=== PATIENT | female | born 1975 | race Two or more races ===

== ENCOUNTER 2023-02-06 22:19 | Emergency (ER) | payer BC, OTHER ==
[~2023-02-06] VITALS: Ht 160 cm; Wt 72.9 kg
[2023-02-06 23:34] LABS: Urine Bacteria NONE SEEN /hpf (None Seen); Urine Blood Negative /uL (Negative); Urine Mucus FEW (None Seen); Urine WBC 1 /hpf (0 - 5)
[2023-02-07] MEDS ORDERED: ALBUTEROL SULF 2.5 MG/0.5ML(0.5%) NEB SOLN NEB ONE (01:00)
[2023-02-07] MEDS ORDERED: IPRATROPIUM BROM 0.5 MG/2.5ML INH SOL NEB ONE (01:00)
[2023-02-07] MEDS ORDERED: ALBUAER3 IN (01:14)
[2023-02-07] MEDS ORDERED: PRED20TA2 PO (01:14)
[2023-02-07] MEDS ORDERED: DexAMETHasone SOD PHOS 10MG/1ML VIAL INJ IM ONE (01:15)
[2023-02-07 01:19] VITALS: BP 100/72
== END 2023-02-07 01:45 | disposition home or self-care (01) ==
LOC: ER 22:19
DX: J44.1 Chronic obstructive pulmonary disease with (acute) exacerbation (principal); J06.9 Acute upper respiratory infection, unspecified; Z20.822 Contact with and (suspected) exposure to COVID-19
CPT/HCPCS: 36415; 71046; 81001; 87426; 87804; 94640; 96372; 99284; J1100; J7644

== ENCOUNTER 2025-08-10 15:55 | Emergency (ER) | payer BC ==
[~2025-08-10] VITALS: Ht 160 cm; Wt 78.0 kg
[~2025-08-10 15:55] MED LIST: ALBUAER3 IN; PRED20TA2 PO
--- NOTE | 2025-08-10 16:34 | ED.PDOC ---
Musculoskeletal HPI Comments A 50 YEAR OLD FEMALE PRESENTS TO THE ED WITH COMPLAINT OF RIGHT POSTERIOR KNEE BUMP. PATIENT STATES SHE HAS BEEN EXPERIENCING RIGHT POSTERIOR KNEE PAIN WITH A LUMP FOR THE PAST 3 DAYS. PT IS ABLE TO WALK AND STAND WITH NORMAL GAIT. PATIENT DENIES FEVER, CHILLS, SHORTNESS OF BREATH, CHEST PAIN, ABDOMINAL PAIN, NAUSEA, VOMITING, HEADACHE, OR OTHER COMPLAINTS. NO OTHER SYMPTOMS OR MODIFYING FACTORS AT THIS TIME. PATIENT IS ALERT, ORIENTED X 4, AND HAS STEADY GAIT. Chief Complaint: Lower Extremity Time Seen by MD: 16:25 Reviewed Notes: Nurses Notes, Medications, Allergies Allergies: Coded Allergies: NO KNOWN ALLERGIES (Unverified , 08/10/25) Home Meds Active Scripts Acetaminophen (Tylenol Extra Strength Fo) 500 Mg Tab, 1000 MG PO BID, #30 TAB Prov:JOSH WILDER 08/10/25 Prednisone (Prednisone) 20 Mg Tab, 20 MG PO BID for 5 Days, #10 TAB 0 Refills Prov:MAK SCHNEIDER 02/07/23 Albuterol Sulfate (VENTOLIN MDI) 90 Mcg Ih, 90 MCG IN PRN, #1 INH 0 Refills Prov:MAK SCHNEIDER 02/07/23 Information Source: Patient Mode of Arrival: Ambulatory Location: Right Extremity Location: Knee Timing: Days Prehospital treatment: None Severity: Moderate Able to Move Extremity: Yes Bear Weight: Fully Pain: Moderate Mechanism: No Trauma, Spontaneous Circumstances: Spontaneous Onset of Symptoms: Spontaneous Symptoms: Pain DVT Risk Factors: NONE Last Tetanus: Unknown Associated signs and symptoms: Knee pain Past Medical History PAST MEDICAL HISTORY: Denies Surgical History: Denies all surgeries 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 History Family History Family History: Reviewed,noncontributory to illness Social History Smoker: Non-Smoker Alcohol: Denies ETOH Use Drugs: Denies Drug Use Lives In: Home Constitutional: denies: chills, diaphoresis, fatigue, fever, malaise, sweats, weakness, others EENTM: denies: blurred vision, double vision, ear bleeding, ear discharge, ear drainage, ear pain, ear ringing, eye pain, eye redness, hearing loss, mouth pain, mouth swelling, nasal discharge, nose bleeding, nose congestion, nose pain, photophobia, tearing, throat pain, throat swelling, voice changes, others Respiratory: denies: cough, hemoptysis, orthopnea, SOB at rest, shortness of breath, SOB with excertion, stridor, wheezing, others Cardiovascular: denies: chest pain, dizzy spells, diaphoresis, Dyspnea on exertion, edema, irregular heart beat, left arm pain, lightheadedness, palpitations, PND, syncope, others Gastrointestinal: denies: abdomen distended, abdominal pain, blood streaked bowels, constipated, diarrhea, dysphagia, difficulty swallowing, hematemesis, melena, nausea, poor appetite, poor fluid intake, rectal bleeding, rectal pain, vomiting, others Genitourinary: denies: abnormal vagina bleeding, burning, dyspareunia, dysuria, flank pain, frequency, hematuria, incontinence, pain, , vagina discharge, urgency, others Neurological: denies: dizziness, fainting, headache, left sided numbness, left sided weakness, numbness, paresthesia, pre-existing deficit, right sided numbness, right sided weakness, seizure, speech problems, tingling, tremors, weakness, others Musculoskeletal: reports: muscle pain, others (RIGHT KNEE PAIN); denies: back pain, gout, joint pain, joint swelling, muscle stiffness, neck pain Integumetry: reports: lumps (RIGHT POSTERIOR KNEE ); denies: bruises, change in color, change in hair/nails, dryness, laceration, lesions, rash, wounds, others Allergic/Immunocompromised: denies: Difficulty Healing, Frequent Infections, Hives, Itching, others Hematologic/Lymphatic: denies: anemia, blood clots, easy bleeding, easy bruising, swollen glands, others Endocrine: denies: excessive hunger, excessive sweating, excessive thirst, excessive urination, flushing, intolerance to cold, intolerance to heat, unexplained weight gain, unexplained weight loss, others Psychiatric: denies: anxiety, bipolar disorder, depression, hopeless, panic disorder, schizophrenia, sleepless, suicidal, others All Other Systems: Reviewed and Negative Physical Exam General Appearance: No Apparent Distress, Normal HEENT: Normal ENT Inspection, PERRL/EOMI, Pharynx Normal, TMs Normal Neck: Full Range of Motion, Non-Tender, Normal, Normal Inspection Respiratory: Chest Non-Tender, Lungs Clear, No Accessory Muscle Use, No Respiratory Distress, Normal Breath Sounds Cardiovascular: No Edema, No JVD, No Murmur, No Gallop, Normal Peripheral Pulses, Regular Rate/Rhythm Breast Exam: Deferred Gastrointestinal: No Organomegaly, Non Tender, No Pulsatile Mass, Normal Bowel Sounds, Soft Genitalia: Deferred Pelvic: Deferred Rectal: Deferred Extremities: No calf tenderness, Normal capillary refill, Normal inspection, Normal range of motion, No pedal edema, Tender (WITH A LUMP ON RIGHT POSTERIOR PROXIMAL THIGH, NO REDNESS, SWELLING AND DVT SIGNS, DAMON'S CYST OR LIPOMA. ) Musculoskeletal : Apperance: Normal Neurologic: Alert, nurse receptionist II-XII nml as Tested, No Motor Deficits, Normal Affect, Normal Mood, No Sensory Deficits Cerebellar Function: Normal Reflexes: Normal Skin: Dry, Normal Color, Warm, Other (2DOP2MO LUMP ON RIGHT POSTERIOR PROXIMAL THIGH, NO REDNESS, SWELLING AND HARDNESS, +LIPOMA OR DAMON'S CYST. ) Peripheral Pulses: 2+ carotid (R), 2+ carotid (L), 2+ dorsalis pedis (R), 2+ dorsalis pedis (L) Lymphatic: No Adenopathy Was a procedure done? Was a procedure done?: No Differential Diagnosis EXT Differential Diagnosis: Deep Vein Thrombosis, Sprain, Strain, Arthritis, Other (LIPOMA OR DAMON'S CYST) X-Ray, Labs, Meds, VS Vital Signs Date Time Temp Pulse Resp B/P (MAP) Pulse Ox O2 Delivery O2 Flow Rate FiO2 08/10/25 17:39 97 Room Air* 0 21 08/10/25 17:34 98.0 73 17 106/72 (83) 97 98.0 08/10/25 15:56 97.0 80 18 130/73 97 97.0 PATIENT: RUTH SPARROWT: [id number]: [id number] : 1975 LOC: ER ROOM / BED: / AGE / SEX: 50 / F ADM STATUS: REG ER SERVICE [id number] ORDERING PHYSICIAN: JOSH WILDER PROCEDURE(s): RLEXT - RIGHT LOWER EXTREMITY ULTRASOU REASON: RIGHT POSTERIOR KNEE BUMP ORDER NUMBER(s): [id number], ACCESSION NUMBER(s): [id number] Exam: Ultrasound right lower extremity, limited Clinical history: Lump in the posterior right knee Technique: Multiple grayscale and color doppler images obtained in the right popliteal fossa in the area of clinical concern. Comparison: None. Findings/impression: No Damon's cyst in the right popliteal fossa. No lymphadenopathy or fluid collection. ATED BY: NIKA MARIE MD DICTATED DATE/TIME: 08/10/251710 SIGNED BY: NIAK MARIE MD SIGNED DATE/TIME: 08/10/251710 CC: X-Ray, Labs, Meds, VS Comment EXTERNAL MEDICAL RECORDS REVIEWED: [NONE] INDEPENDENT HISTORIANS: [NONE] SOCIAL DETERMINANTS OF HEALTH: [NONE] LABS ORDERED: NONE REVIEWED AND INTERPRETED RESULTS: NONE IMAGING ORDERED: US RIGHT LOWER EXTREMITY TREATMENTS ORDERED: NONE PROCEDURES PERFORMED: NONE CRITICAL CARE TIME: NONE I HAVE DISCUSSED THE PATIENT WITH THE ATTENDING PHYSICIAN DR. SUNG AND HE AGREES WITH THE PATIENT'S PLAN OF CARE AND DISPOSITION. BASED ON HISTORY OF PRESENT ILLNESS, AND PHYSICAL EXAM, PATIENT WILL BE DISCHARGED HOME. DISCUSSED PLAN FOR DISCHARGE HOME WITH RX [TYLENOL ]. MEDICAT ION WARNINGS GIVEN. SHARED DECISION MAKING: DISCUSSED WITH PATIENT THAT THEIR WORKUP WAS NORMAL. PATIENT INSTRUCTED TO FOLLOW UP WITH PRIMARY CARE PROVIDER IN 1-2 DAYS FOR RE- EVALUATION OF SYMPTOMS. PATIENT VERBALIZES UNDERSTANDING TO RETURN TO ED FOR NEW OR WORSENING SYMPTOMS OR IF FOLLOW UP WITH PCP CANNOT BE OBTAINED. PATIENT FEELS COMFORTABLE GOING HOME AT THIS TIME. ALL QUESTIONS ADDRESSED AT TIME OF DISCHARGE. Images Reviewed?: Images reviewed and evaluated by me Time of 1ST Reevaluation: 17:36 Reevaluation 1ST: Improved Patient Education/Counseling: Diagnosis, Treatment, Need For Follow Up Family Education/Counseling: Diagnosis, Treatment, Need For Follow Up Medical Screening: No EMC Exist At This Time Departure 1 Departure Time of Disposition: 18:00 Impression: Primary Impression: Lipoma of right thigh Disposition: HOME / SELF CARE / HOMELESS Condition: Stable Additional Instructions: FOLLOW-UP WITH PCP IN 1 TO 2 DAYS. TAKE MEDICATIONS PRESCRIBED. RETURN TO ED FOR ANY NEW OR WORSENING SYMPTOMS. e-Prescriptions Acetaminophen (Tylenol Extra Strength Fo) 500 Mg Tab 1000 MG PO BID, #30 TAB Prov: JOSH WILDER 08/10/25 Discharged With: Self Critical Care Note Critical Care Time?: No Stability Stability form required: No I personally scribed for JOSH WILDER ([email or web address]) on 08/10/25 at 16:34. Electronically submitted by Martín Quezada ([email or web address]). I personally scribed for JOSH WILDER ([email or web address]) on 08/11/25 at 07:22. Electronically submitted by Martín Quezada ([email or web address]). JOSH WILDER Aug 10, 2025 16:34
--- NOTE | 2025-08-10 17:12 | DVH ---
Exam: Ultrasound right lower extremity, limited Clinical history: Lump in the posterior right knee Technique: Multiple grayscale and color doppler images obtained in the right popliteal fossa in the a cullen of clinical concern. Comparison: None. Findings/impression: No Damon's cyst in the right popliteal fossa. No lymphadenopathy or fluid collection.
[2025-08-10] MEDS ORDERED: ACET-1304 PO (17:32)
[2025-08-10 17:34] VITALS: BP 106/72; PULSE 73; RESP 17; TEMP 98
[2025-08-10 17:39] VITALS: O2SAT 97
== END 2025-08-10 17:25 | disposition home or self-care (01) ==
LOC: ER 16:00
DX: D17.23 Benign lipomatous neoplasm of skin and subcutaneous tissue of right leg (principal); Z79.52 Long term (current) use of systemic steroids; Z79.899 Other long term (current) drug therapy
CPT/HCPCS: 76881